=== PATIENT | male | born 1965 | race Caucasian/White ===

== ENCOUNTER 2018-02-26 16:01 | Emergency (ER) | payer OTHER ==
[~2018-02-26] VITALS: Ht 185.4 cm; Wt 86.2 kg
--- NOTE | ~2018-02-26 | EKG ---
[place] [address] [email or web address] [place] [place] [address] ELECTROCARDIOGRAM REPORT Name: JEFF COUCH [id number] Admission: 02/26/18 Attend Phys: Discharge: 02/26/18 Date of : 69 Report #: [id number] THIS REPORT FOR: //name// [facility] ED Test Date: 2018-02-26 Test Time: 15:57:05 Pat Name: JEFF COUCH Department: Room: Gender: M Is Architect: : [id number] Requested By: Oni Yeboah Order Number: [id number] MD: Rich Mayo Measurements Intervals Arp Rate: 84 P: 55 NV: 159 QRS: 44 QRSD: 95 T: 36 QT: 360 QTc: 426 Interpretive Statements Sinus rhythm ST elev, probable normal early repol pattern No previous ECG available for comparison Electronically Signed On 02-27-2018 7:54:11 CDT by Rich Mayo [email or web address] <ELECTRONICALLY SIGNED> By: Rich Mayo MD, [facility] 02/27/18 [id number] Rich Mayo MD, FACC /EPI
[~2018-02-26 16:01] MED LIST: BACTRIM DS TAB1 EACH PO; CARISOPRODOL 3350 MG PO; ENDOCET 10-3251 EACH PO; FLEXERIL PO; KEFLEX500 M1 PO; MEDROL DOSPAK21 TA1 PO; MEDROLDOSEPACK PO; NOHOMEMEDICATIONS; NORFLEX100 MG PO; PERCOCET 5-3251 EACH PO; PERCOCET PO; RELAFEN500 MG PO
[2018-02-26 16:11] LABS: ABSOLUTE NEUTROPHILS 9.2 thou/uL (1.4-8.2); BASOPHILS 0.7 % (0.0-2.0); EOSINOPHILS 0.6 % (0.0-3.0); HEMATOCRIT 44.3 % (42.0-52.0); HEMOGLOBIN 15.5 gm/dL (14.0-18.0); LYMPHOCYTES 15.1 % (24.0-44.0); MCH 33.8 pg (26.0-34.0); MCHC 34.9 g/dL (28.0-37.0); PLATELET COUNT 238 thou/uL (150-400); POLYS 75.6 % (36.0-66.0); RBC 4.57 mil/uL (4.50-6.00); RDW 13.5 % (10.5-14.5); WBC 12.2 thou/uL (4.0-11.0)
[2018-02-26 16:20] LABS: ANION GAP 10 mmol/L (7-16); BUN 22 mg/dL (7-18); CALCIUM 10.1 mg/dL (8.5-10.1); CHLORIDE 97 mmol/L (98-107); CO2 24 mmol/L (21-32); CREATININE 2.4 mg/dL (0.7-1.3); GLUCOSE 133 mg/dL (74-106); POTASSIUM 4.3 mmol/L (3.5-5.1); SODIUM 131 mmol/L (136-145)
[2018-02-26 16:28] LABS: ALBUMIN 4.5 g/dL (3.4-5.0); MAGNESIUM 1.8 mg/dL (1.8-2.4); SGOT 30 U/L (15-37); SGPT 45 U/L (30-65); TOTAL BILIRUBIN 0.5 mg/dL (<0.1-1.0); TOTAL PROTEIN 7.9 g/dL (6.4-8.2); TROPONIN-I <0.06 ng/mL (<0.06)
[2018-02-26 17:14] LABS: URINE BILIRUBIN NEGATIVE (Negative); URINE BLOOD NEGATIVE (Negative); URINE CLARITY CLEAR; URINE COLOR YELLOW; URINE GLUCOSE-RANDOM* NEGATIVE (Negative); URINE KETONES NEGATIVE (Negative); URINE LEUKOCYTES-REFLEX 1+ (Negative); URINE NITRITE-REFLEX NEGATIVE (Negative); URINE PROTEIN (DIPSTICK) 1+ (Negative); URINE UROBILINOGEN 0.2 E.U./dl (0.2-1.0)
[2018-02-26 17:23] LABS: SQUAMOUS 0-3 Few /LPF (0-3)
[2018-02-26 17:24] LABS: CASTS None Seen /LPF (None Seen); MUCUS 4-6 Moderate strn/LPF (None Seen)
[2018-02-26 17:25] LABS: BACTERIA-REFLEX 1-9 Few /HPF (None Seen); CRYSTALS None Seen /LPF (None Seen); URINE RBC 0-2 Rare /HPF (0-2); URINE WBC-REFLEX 6-15 Few /HPF (0-5)
[2018-02-26] MEDS ORDERED: BACTRIM DS TAB1 EACH PO (17:29)
== END 2018-02-26 17:52 | disposition home or self-care (01) ==
LOC: ER 16:01
PROVIDERS: Physician Assistant
DX: T67.5XXA Heat exhaustion, unspecified, initial encounter (principal); E86.0 Dehydration; N39.0 Urinary tract infection, site not specified; N17.9 Acute kidney failure, unspecified; F17.210 Nicotine dependence, cigarettes, uncomplicated; X58.XXXA Exposure to other specified factors, initial encounter; Y93.89 Activity, other specified; Y92.89 Other specified places as the place of occurrence of the external cause; Y99.8 Other external cause status

== ENCOUNTER → 2020-06-27 | Outpatient (CLI) | payer OTHER | LOC: LAB 12:17 | PROVIDERS: ATTEND Family Medicine | DX: Z20.828 Contact with and (suspected) exposure to other viral communicable diseases (principal) ==

== ENCOUNTER → 2020-09-05 | Outpatient (CLI) | payer OTHER | LOC: LAB 14:16 | PROVIDERS: ATTEND Family Medicine | DX: U07.1 COVID-19 (principal) ==